=== PATIENT | female | born 1995 | race Caucasian/White ===

== ENCOUNTER → 2018-03-15 | Outpatient (CLI) | payer SELFPAY ==
[~2018-03-15] MED LIST: HYDR-690 PO; KETO-22 PO; NITR-65 PO; PHEN200T27 PO; birth control PO
--- NOTE | 2018-03-15 19:42 | Diagnostic Imaging Report ---
INDICATION: Positive test and lost IUD thread. TECHNIQUE: Multiple real-time grayscale images were obtained over the gravid uterus in various projections. FINDINGS: There is an intrauterine gestational sac containing a yolk sac. Gestational sac mean diameter is consistent with approximately 6 weeks 0 day gestation. No pole is seen at this time. No perigestational sac hemorrhage is detected. Gestational sac shape is within normal limits. The left ovary is not visualized. The right ovary contains a 17 mm hemorrhagic cyst. There is no free fluid. No IUD is visualized. IMPRESSION: Nonvisualized IUD. There is an intrauterine gestational sac containing a yolk sac of approximately 6 weeks 0 day gestation. No pole is seen at this time. Follow-up ultrasound and/or correlation with beta-hCG levels could be performed to confirm viable . Dictated by: Dictated on workstation # [id number]
== END ==
LOC: RAD 14:03
PROVIDERS: ATTEND Nurse Practitioner
DX: Z32.01 Encounter for pregnancy test, result positive (principal); T83.32XA Displacement of intrauterine contraceptive device, initial encounter; Z3A.01 Less than 8 weeks gestation of pregnancy
CPT/HCPCS: 36415; 76817; 84702

== ENCOUNTER → 2018-06-22 | Outpatient (CLI) | payer MEDICAID ==
--- NOTE | 2018-06-22 14:22 | Diagnostic Imaging Report ---
INDICATION: survey. TECHNIQUE: Multiple real-time grayscale images were obtained over the gravid uterus. COMPARISON: 03/15/2018. FINDINGS: There is a single live fetus in a breech presentation. heart rate was recorded at 126 beats per minute. The placenta is anterior. Amniotic fluid volume is normal. Cervical length is 3.8 cm. kidneys, bladder and stomach are unremarkable. The brain is unremarkable. There is a four-chamber heart. There is a three-vessel cord with normal cord insertion. spine is somewhat limited due to position. Maternal adnexa are unremarkable. Biometrical measurements are as follows: Biparietal 4.45 cm, age 19 weeks 4 days. Head circumference 17.40 cm, age 20 weeks 0 days. Abdominal circumference 15.13 cm, age 20 weeks 3 days. Femur length 3.23 cm, age 20 weeks 1 days. Sonographic estimate age: 20 weeks 1 days. Sonographic estimated date of delivery: 11/08/2018. Estimated Weight: 337 gm (+/- 49 gm). LMP percentile: 47%. heart rate: 126 beats per minute. number: 1 of 1. IMPRESSION: Single live IUP at 20 weeks gestational age demonstrating normal interval growth when compared with prior exam from 03/15/2018. survey is unremarkable although spine is somewhat limited due to position. Followup could be obtained. Dictated by: Dictated on workstation # [id number]
== END ==
LOC: RAD 10:10
PROVIDERS: ATTEND Obstetrics & Gynecology
DX: Z36.89 Encounter for other specified antenatal screening (principal); Z3A.20 20 weeks gestation of pregnancy
CPT/HCPCS: 76805

== ENCOUNTER → 2018-07-18 | Outpatient (CLI) | payer MEDICAID ==
--- NOTE | 2018-07-18 17:53 | Diagnostic Imaging Report ---
INDICATION: Evaluation of anatomy. TECHNIQUE: Multiple real-time grayscale images were obtained over the gravid uterus. COMPARISON: 06/22/2018. FINDINGS: Images were obtained to evaluate the spine which was incompletely assessed on the previous study. Fetus is in breech presentation. Spine is not well delineated on the current study. Placenta is anterior without evidence of previa. cardiac activity is present with a rate 150 beats per minute. No maternal adnexal region abnormality is identified. IMPRESSION: Limited assessment of spine reveals no definite abnormality although evaluation remains incomplete. Additional follow-up study could be performed later in the second trimester or early third trimester if clinically warranted. Dictated by: Dictated on workstation # [id number]
== END ==
LOC: RAD 13:06
PROVIDERS: ATTEND Obstetrics & Gynecology
DX: Z36.89 Encounter for other specified antenatal screening (principal); Z3A.21 21 weeks gestation of pregnancy
CPT/HCPCS: 76816

== ENCOUNTER → 2018-11-01 | Outpatient (CLI) | payer BC, MEDICAID ==
--- NOTE | 2018-11-01 11:56 | Diagnostic Imaging Report ---
INDICATION: Followup spine. TECHNIQUE: Multiple real-time grayscale images were obtained over the gravid uterus. COMPARISON: 06/22/2018 and 07/18/2018. FINDINGS: The prior exam of 07/18/2018 noted a single live fetus in breech presentation. spine was not well imaged on the prior exam. On this study, the fetus is again visualized and remains in breech presentation. heart motion was noted and a rate of 125 BPM was recorded. There were no abnormalities identified but the spine was again not optimally visualized due to lie. The growth parameters average approximately 38 weeks gestation +/-3.5 weeks. The amniotic fluid index is within normal limits. The placenta is anterior and there is no previa. The cervix was not measured during the course of this exam. IMPRESSION: 1. There is a single live fetus in breech presentation at approximately 39 weeks gestation +/-1.5 weeks. The EDC remains November 08, 2018. 2. There were no abnormalities identified, although the spine was still not optimally visualized. 3. The growth parameters seem to have progress as expected since the prior exam. Biometrical measurements are as follows: Biparietal 9.30 cm, age 37 weeks 6 days. Head circumference 33.87 cm, age 39 weeks 0 days. Abdominal circumference 34.52 cm, age 38 weeks 3 days. Femur length 7.06 cm, age 36 weeks 2 days. Sonographic estimate age: 38 weeks 0 days. Sonographic estimated date of delivery: 11/15/2018. Estimated Weight: 3339 gm (+/- 487 gm). LMP percentile: 41%. heart rate: 125 beats per minute. number: 1 of 1. Dictated by: Dictated on workstation # [id number]
== END ==
LOC: RAD 10:03
PROVIDERS: ATTEND Obstetrics & Gynecology
DX: O32.1XX0 Maternal care for breech presentation, not applicable or unspecified (principal); Z3A.39 39 weeks gestation of pregnancy
CPT/HCPCS: 76816

== ENCOUNTER 2018-11-07 07:00 | Inpatient (IN) | payer BC, MEDICAID ==
[2018-11-07] VITALS (20 sets, daily range): BP systolic 98–129; BP diastolic 51–78
[~2018-11-07] VITALS: Ht 162.6 cm; Wt 84.8 kg
--- NOTE | 2018-11-07 07:10 | NUR ---
BEATRICE GARCIA presented to unit via AMBULATORY, accompanied by SO, with c/o BREECH, SCHEDULED EXTERNAL CEPHALIC VERSION BY DR LAI . BEATRICE GARCIA weighed, gowned, voided, and to bed. EFHM and TOCO applied, VS taken. BEATRICE GARCIA oriented to bed controls, call light, TV, heat, and A/C controls.
--- OUTSIDE RECORDS SUMMARY | 2018-11-07 07:21 | XMS REPORT ---
Author Author DAVIN GOETZ [facility] Address [address] [place] [address] Care Team Providers Care Systems Security Consultant Name Role Phone DAVIN GOETZ Unavailable PROBLEMS Type Condition ICD9-CM Code [id number] Code Onset Dates Condition Status SNOMED Code Problem Blood in stool 578.1 Active 046010086 Problem Hematuria, unspecified 599.70 Active 29826859 Problem Abdominal pain, unspecified site 789.00 Active 62419528 Problem Toxic effect of venom 989.5 Active 65530244 Problem Pain in joint, lower leg 719.46 Active 625114197 Problem Enlargement of lymph nodes 785.6 Active 93340586 ALLERGIES No Information ENCOUNTERS Encounter Location Date Diagnosis [place] [id number] [address] 04 Mar, 2018 test positive Z32.01 [place] [address] [address] 16 Jan, 2018 Encounter for IUD removal Z30.432 and control counseling Z30.09 [facility] [address] [place] [id number] [place] [address] 14 Jan, 2015 [facility] [address] [place] [id number] [place] [address] 13 Jan, 2015 [facility] [address] [place] [id number] [place] [address] Jul, [facility] [address] [address] Jul, [facility] [address] [place] [id number] [place] [address] Nov, [facility] [address] [address] Nov, [facility] [address] [facility] [id number], [place] [address] Apr, [facility] [address] [facility] [id number] [address] Apr, [facility] [address] [id number], [place] [address] Apr, [facility] [address] [facility] [id number], [place] [address] Apr, [facility] [address] [facility] [id number], [place] [address] Apr, [facility] [address] [facility] [id number], [place] [address] Apr, [facility] [address], [place] [address] Apr, [facility] [address], [place] [address] Apr, [facility] [address], [place] [address] Apr, [facility] [address], [place] [address] February, [facility] [address] [id number], [place] [address] February, [facility] [address] [id number], [place] [address] February, [facility] [address] [id number] [address] Oct, [facility] [address] [id number], [place] [address] Nov, IMMUNIZATIONS No Known Immunizations SOCIAL HISTORY Never Assessed REASON FOR VISIT test (walk-in) PLAN OF CARE VITAL SIGNS MEDICATIONS Unknown Medications RESULTS Name Result Date Reference Range TEST, URINE (IN HOUSE) 2018-03-07 RESULTS POSITIVE Lot # [id number] Control + Exp date 03 Aug 2019 PROCEDURES Procedure Date Ordered Result Body Site URINE TEST March 07, 2018 INSTRUCTIONS MEDICATIONS ADMINISTERED No Known Medications MEDICAL (GENERAL) HISTORY Type Description Date Surgical History rt foot surgery
--- OUTSIDE RECORDS SUMMARY | 2018-11-07 07:21 | XMS REPORT | Continuity of Care Document ---
Author Author [facility] Organization [facility] Address Unknown Phone Unavailable Support Name Relationship Address Phone KATHLEEN FLEMING Next Of Kin [address] [place] [address] Insurance Providers Payer Name Policy Number Subscriber Name Relationship [facility] [id number] Hiral Motley Self / Same As Patient Advance Directives Directive Response Recorded Date Advance Directives N 04/14/13 1:26pm Organ Donor Y 04/14/13 1:26pm Problems No Known Problems or Medical conditions. Social History History Response Recorded Date/Time Alcohol Use Denies Use 02/19/13 8:55pm Recreational Drug Use N 02/19/13 8:55pm Sexually Transmitted Disease N 02/19/13 8 :55pm Allergies, Adverse Reactions, Alerts Allergen Type Severity Reaction Last Updated No Known Drug Allergies Allergy Unknown 11/24/07 Acetaminophen Allergy Mild 01/05/10 Medications Medication Dose Units Route Sig Qty Days [ control] 1 Tab PO DAILY Hydrocodone Bitartrate/Ibuprofen (Hydrocodone Bt-Ibuprofen Tab) 1 Each PO Q 4 - 6 HRS PRN 10 Response Recorded Date/Time Status not known Unknown Results No Known Relevant Diagnostic Tests, Laboratory Data and/or Discharge Summary. Procedures Procedure Code Date REMOVAL OF FOOT FOREIGN BODY 33378 Encounters Encounter Location Date/Time Departed Emergency Room [facility] 8:46pm Pre-registered Emergency Room [facility] 01/03/10 2:11pm
--- OUTSIDE RECORDS SUMMARY | 2018-11-07 07:21 | XMS REPORT ---
Author Author DAVIN GOETZ [facility] Address [address] [place] [address] Care Team Providers Care Band Attacher Name Role Phone DAVIN GOETZ Unavailable PROBLEMS Type Condition ICD9-CM Code PZI14-GT Code Onset Dates Condition Status SNOMED Code Problem Blood in stool 578.1 Active 709937350 Problem Hematuria, unspecified 599.70 Active 24844196 Problem Abdominal pain, unspecified site 789.00 Active 62104191 Problem Toxic effect of venom 989.5 Active 24965645 Problem Pain in joint, lower leg 719.46 Active 294649084 Problem Enlargement of lymph nodes 785.6 Active 12347957 ALLERGIES No Known Allergies ENCOUNTERS Encounter Location Date Diagnosis [place] [address] [address] 04 Mar, 2018 test positive Z32.01 [place] [address] [address] 16 Jan, 2018 Encounter for IUD removal Z30.432 and control counseling Z30.09 [facility] [address] [place] [id number] [place] [address] 14 Jan, 2015 [facility] [address] [place] [id number] [place] [address] 13 Jan, 2015 [facility] [address] [place] [id number] [place] [address] Jul, [facility] [address] [address] Jul, [facility] [address] [place] [id number] [place] [address] Nov, [facility] [address] [address] Nov, [facility] [address] [facility] [id number], [place] [address] Apr, [facility] [address] [facility] [id number] Apr, [facility] [address] [facility] [id number], [place] [address] Apr, [facility] [address] [facility] [id number], [place] [address] Apr, [facility] [address] [facility] [id number], [place] [address] Apr, [facility] [address] [facility] [id number], [place] [address] Apr, [facility] [address] [id number], [place] [address] Apr, [facility] [address] [facility] [id number], [place] [address] Apr, [facility] [address] [facility] [id number], [place] [address] Apr, [facility] [address] [facility] [id number], [place] [address] February, [facility] [address] [facility] [id number], [place] [address] February, [facility] [address] [facility] [id number], [place] [address] February, [facility] [address] [facility] [id number], [place] [address] Oct, [facility] [address] [facility] [id number], [place] [address] Nov, IMMUNIZATIONS No Known Immunizations SOCIAL HISTORY Never Assessed REASON FOR VISIT IUD check , patient states she has been having cramping states she has had the IUD for 2 1/2 year -- mzaldana, ma PLAN OF CARE Activity Details Follow Up 6 Months with [facility] with PAP Reason: VITAL SIGNS Height 66 in 2018-01-17 Weight 138.0 lbs 2018-01-17 Temperature 98.0 degrees Fahrenheit 2018-01-17 Heart Rate 78 bpm 2018-01-17 Respiratory Rate 18 2018-01-17 BMI 22.27 kg/m2 2018-01-17 Blood pressure systolic 110 mmHg 2018-01-17 Blood pressure diastolic 76 mmHg 2018-01-17 MEDICATIONS Unknown Medications RESULTS No Results PROCEDURES Procedure Date Ordered Result Body Site REMOVE INTRAUTERINE DEVICE January 17, 2018 INSTRUCTIONS MEDICATIONS ADMINISTERED No Known Medications MEDICAL (GENERAL) HISTORY Type Description Date Surgical History rt foot surgery
--- OUTSIDE RECORDS SUMMARY | 2018-11-07 07:22 | XMS REPORT | Continuity of Care Document ---
Author Author [facility] Address Unknown Phone Unavailable Allergies Active Description Code Type Severity Reaction Onset Reported/Identified Relationship to Patient Clinical Status Yes No Known Drug Allergies [id number] Drug Allergy Unknown N/A 11/24/2007 Yes acetaminophen [id number] Drug Allergy Mild N/A 01/05/2010 Yes Tylenol Drug Allergy 12/08/2010 Yes Tylenol Drug Allergy N/A N/A 12/08/2010 Medications There is no data. Problems Date Dx Coded Attending Type Code Diagnosis Diagnosed By 10/19/2008 462 PHARYNGITIS ACUTE 10/19/2008 462 PHARYNGITIS ACUTE 10/19/2008 462 PHARYNGITIS ACUTE 10/19/2008 462 PHARYNGITIS ACUTE 10/19/2008 DIGNA PALAFOX MD 462 PHARYNGITIS ACUTE 10/19/2008 CANDELARIA MCCLENDON MD 462 PHARYNGITIS ACUTE 11/14/2008 465.9 UPPER RESPIRATORY INFECTION ACUTE 11/14/2008 465.9 UPPER RESPIRATORY INFECTION ACUTE 11/14/2008 465.9 UPPER RESPIRATORY INFECTION ACUTE 11/14/2008 465.9 UPPER RESPIRATORY INFECTION ACUTE 11/14/2008 DIGNA PALAFOX MD 465.9 UPPER RESPIRATORY INFECTION ACUTE 11/14/2008 CANDELARIA MCCLENDON MD 465.9 UPPER RESPIRATORY INFECTION ACUTE 12/08/2010 703.8 OTHER SPECIFIED DISEASES OF NAIL 12/08/2010 883.0 OPEN WOUND OF FINGERS WITHOUT COMPLICATION 12/08/2010 703.8 OTHER SPECIFIED DISEASES OF NAIL 12/08/2010 883.0 OPEN WOUND OF FINGERS WITHOUT COMPLICATION 12/08/2010 703.8 OTHER SPECIFIED DISEASES OF NAIL 12/08/2010 883.0 OPEN WOUND OF FINGERS WITHOUT COMPLICATION 12/08/2010 703.8 OTHER SPECIFIED DISEASES OF NAIL 12/08/2010 883.0 OPEN WOUND OF FINGERS WITHOUT COMPLICATION 12/08/2010 DIGNA PALAFOX MD 703.8 OTHER SPECIFIED DISEASES OF NAIL 12/08/2010 DIGNA PALAFOX MD 883.0 OPEN WOUND OF FINGERS WITHOUT COMPLICATION 12/08/2010 CANDELARIA MCCLENDON MD 703.8 OTHER SPECIFIED DISEASES OF NAIL 12/08/2010 CANDELARIA MCCLENDON MD 883.0 OPEN WOUND OF FINGERS WITHOUT COMPLICATION 02/19/2013 RAMON LEE DO Ot 709.9 SKIN DISORDER NOS 02/21/2013 785.6 LYMPH NODES ENLARGEMENT 02/21/2013 989.5 TOXIC EFFECT OF VENOM 02/21/2013 785.6 LYMPH NODES ENLARGEMENT 02/21/2013 989.5 TOXIC EFFECT OF VENOM 02/21/2013 785.6 LYMPH NODES ENLARGEMENT 02/21/2013 989.5 TOXIC EFFECT OF VENOM 02/21/2013 DIGNA PALAFOX MD 785.6 LYMPH NODES ENLARGEMENT 02/21/2013 JAVY SHEIKH, DIGNA 989.5 TOXIC EFFECT OF VENOM 02/21/2013 CANDELARIA MCCLENDON MD 785.6 LYMPH NODES ENLARGEMENT 02/21/2013 CANDELARIA MCCLENDON MD 989.5 TOXIC EFFECT OF VENOM 04/11/2013 JAVY SHEIKH, DIGNA 578.1 BLOOD IN STOOL 04/11/2013 DANELLE SHEIKH, CANDELARIA 578.1 BLOOD IN STOOL 04/13/2013 JAVY SHEIKH, DIGNA 599.70 HEMATURIA UNSPECIFIED 04/13/2013 JAVY SHEIKH, DIGNA 789.00 ABDOMINAL PAIN UNSPECIFIED SITE 04/13/2013 DANELLE SHEIKH CANDELARIA 599.70 HEMATURIA UNSPECIFIED 04/13/2013 CANDELARIA MCCLENDON MD 789.00 ABDOMINAL PAIN UNSPECIFIED SITE 07/14/2013 CANDELARIA MCCLENDON MD L Ot 578.1 BLOOD IN STOOL 08/13/2013 RAMON LEE DO Ot 599.0 URIN TRACT INFECTION NOS 08/13/2013 RAMON LEE DO Ot 620.2 OVARIAN CYST NEC/NOS 08/13/2013 RAMON LEE DO Ot 789.00 ABDOMINAL PAIN, UNSPECIFIED SITE 07/17/2014 CANDELARIA MCCLENDON MD 719.46 PAIN IN JOINT INVOLVING LOWER LEG 08/20/2014 CANDELARIA MCCLENDON MD Ot 719.46 08/20/2014 CANDELARIA MCCLENDON MD Ot V57.1 09/07/2014 CANDELARIA MCCLENDON MD Ot 719.46 JOINT PAIN-L/LEG 09/07/2014 DANELLE SHEIKH, CANDELARIA [place] Ot V57.1 PHYSICAL THERAPY NEC 03/10/2018 DANELLE SHEIKH, CANDELARIA [place] Ot 599.70 HEMATURIA, UNSPECIFIED 03/10/2018 JAVY SHEIKH, DIGNA [place] Ot 578.1 BLOOD IN STOOL 03/10/2018 JAVY SHEIKH, DIGNA [place] Ot 599.70 HEMATURIA, UNSPECIFIED 03/10/2018 JAVY SHEIKH, DIGNA [place] Ot 789.00 ABDOMINAL PAIN, UNSPECIFIED SITE 03/10/2018 FENECH DO, PRISCA S Ot 625.9 FEM GENITAL SYMPTOMS NOS 03/10/2018 Ot 578.1 BLOOD IN STOOL 03/15/2018 DANELLE SHEIKH, CANDELARIA [place] Ot 599.70 HEMATURIA, UNSPECIFIED 03/15/2018 JAVY SHEIKH, DIGNA [place] Ot 578.1 BLOOD IN STOOL 03/15/2018 JAVY SHEIKH, DIGNA [place] Ot 599.70 HEMATURIA, UNSPECIFIED 03/15/2018 JAVY SHEIKH, DIGNA [place] Ot 789.00 ABDOMINAL PAIN, UNSPECIFIED SITE 03/15/2018 FENECH DO, PRISCA S Ot 625.9 FEM GENITAL SYMPTOMS NOS 03/15/2018 Ot 578.1 BLOOD IN STOOL 03/16/2018 OUMOU ZEPEDA TURNING LATHE TENDER Ot T83.32XA DISPLACEMENT OF INTRAUTERINE CONTRACEPTI 03/16/2018 OUMOU ZEPEDA TURNING LATHE TENDER Ot Z32.01 ENCOUNTER FOR TEST, RESULT POS 03/16/2018 KATELYN OUMOU W TURNING LATHE TENDER Ot Z3A.01 LESS THAN 8 WEEKS GESTATION OF 05/27/2018 OUMOU ZEPEDA TURNING LATHE TENDER Ot T83.32XA DISPLACEMENT OF INTRAUTERINE CONTRACEPTI 05/27/2018 QUICKOUMOU TURNING LATHE TENDER Ot Z32.01 ENCOUNTER FOR TEST, RESULT POS 05/27/2018 QUICKOUMOU TURNING LATHE TENDER Ot Z3A.01 LESS THAN 8 WEEKS GESTATION OF 06/08/2018 OUMOU ZEPEDA TURNING LATHE TENDER Ot T83.32XA DISPLACEMENT OF INTRAUTERINE CONTRACEPTI 06/08/2018 OUMOU ZEPEDA TURNING LATHE TENDER Ot Z32.01 ENCOUNTER FOR TEST, RESULT POS 06/08/2018 OUMOU ZEPEDA TURNING LATHE TENDER Ot Z3A.01 LESS THAN 8 WEEKS GESTATION OF 06/23/2018 LAI DO, JES C Ot Z36.89 ENCOUNTER FOR OTHER SPECIFIED 06/23/2018 LAI DO, JES C Ot Z3A.20 20 WEEKS GESTATION OF 07/07/2018 LAI DO, JES C Ot Z36.89 ENCOUNTER FOR OTHER SPECIFIED 07/07/2018 LAI DO, JES C Ot Z3A.20 20 WEEKS GESTATION OF 07/18/2018 DANELLE SHEIKH, CANDELARIA [place] Ot 599.70 HEMATURIA, UNSPECIFIED 07/18/2018 JAVY SHEIKH, DIGNA L Ot 578.1 BLOOD IN STOOL 07/18/2018 JAVY SHEIKH, DIGNA L Ot 599.70 HEMATURIA, UNSPECIFIED 07/18/2018 JAVY SEHIKH, DIGNA L Ot 789.00 ABDOMINAL PAIN, UNSPECIFIED SITE 07/18/2018 FENECH DO, PRISCA S Ot 625.9 FEM GENITAL SYMPTOMS NOS 07/18/2018 Ot 578.1 BLOOD IN STOOL 07/18/2018 OUMOU ZEPEDA TURNING LATHE TENDER Ot T83.32XA DISPLACEMENT OF INTRAUTERINE CONTRACEPTI 07/18/2018 OUMOU ZEPEDA TURNING LATHE TENDER Ot Z32.01 ENCOUNTER FOR TEST, RESULT POS 07/18/2018 OUMOU ZEPEDA TURNING LATHE TENDER Ot Z3A.01 LESS THAN 8 WEEKS GESTATION OF 07/18/2018 LAI DO, JES C Ot Z36.89 ENCOUNTER FOR OTHER SPECIFIED 07/18/2018 LAI DO, JES C Ot Z3A.20 20 WEEKS GESTATION OF 07/19/2018 LAI DO, JES C Ot Z36.89 ENCOUNTER FOR OTHER SPECIFIED 07/19/2018 LAI DO, JES C Ot Z3A.21 21 WEEKS GESTATION OF 08/04/2018 LAI DO, JES C Ot Z36.89 ENCOUNTER FOR OTHER SPECIFIED 08/04/2018 LAI DO, JES C Ot Z3A.21 21 WEEKS GESTATION OF 09/01/2018 LAI DO, JES C Ot Z36.89 ENCOUNTER FOR OTHER SPECIFIED 09/01/2018 LAI DO, JES C Ot Z3A.21 21 WEEKS GESTATION OF 09/01/2018 CANDELARIA MCCLENDON MD L Ot 599.70 HEMATURIA, UNSPECIFIED 09/01/2018 JAVY SHEIKH, DIGNA L Ot 578.1 BLOOD IN STOOL 09/01/2018 JAVY SHEIKH, DIGNA L Ot 599.70 HEMATURIA, UNSPECIFIED 09/01/2018 JAVY SHEIKH, DIGNA [place] Ot 789.00 ABDOMINAL PAIN, UNSPECIFIED SITE 09/01/2018 FENECH DO, PRISCA S Ot 625.9 FEM GENITAL SYMPTOMS NOS 09/01/2018 Ot 578.1 BLOOD IN STOOL 09/01/2018 OUMOU ZEPEDA TURNING LATHE TENDER Ot T83.32XA DISPLACEMENT OF INTRAUTERINE CONTRACEPTI 09/01/2018 KATELYN OUMOU W TURNING LATHE TENDER Ot Z32.01 ENCOUNTER FOR TEST, RESULT POS 09/01/2018 KATELYNELIZABETHRita Parmar TURNING LATHE TENDER Ot Z3A.01 LESS THAN 8 WEEKS GESTATION OF 09/01/2018 MING DO JES C Ot Z36.89 ENCOUNTER FOR OTHER SPECIFIED 09/01/2018 MING DO JES C Ot Z3A.20 20 WEEKS GESTATION OF 09/01/2018 LIA DO JES C Ot Z36.89 ENCOUNTER FOR OTHER SPECIFIED 09/01/2018 MING DO JES C Ot Z3A.21 21 WEEKS GESTATION OF 11/01/2018 FENECH DO, PRISCA S Ot 625.9 FEM GENITAL SYMPTOMS NOS 11/01/2018 Ot 578.1 BLOOD IN STOOL 11/01/2018 KATELYN OUMOU W TURNING LATHE TENDER Ot T83.32XA DISPLACEMENT OF INTRAUTERINE CONTRACEPTI 11/01/2018 QUICK OUMOU W TURNING LATHE TENDER Ot Z32.01 ENCOUNTER FOR TEST, RESULT POS 11/01/2018 KATELYN OUMOU W TURNING LATHE TENDER Ot Z3A.01 LESS THAN 8 WEEKS GESTATION OF 11/01/2018 MING DO JES C Ot Z36.89 ENCOUNTER FOR OTHER SPECIFIED 11/01/2018 MING GUERRA JES C Ot Z3A.20 20 WEEKS GESTATION OF 11/01/2018 MING GUERRA JES C Ot Z36.89 ENCOUNTER FOR OTHER SPECIFIED 11/01/2018 MING DO JES C Ot Z3A.21 21 WEEKS GESTATION OF 11/01/2018 JES LAI DO Ot O32.1XX0 MATERNAL CARE FOR BREECH PRESENTATION, U 11/01/2018 JES LAI DO C Ot Z3A.39 39 WEEKS GESTATION OF Procedures Code Description Performed By Performed On FAMILY ISMAEL GUSMAN 07/17/2014 PHYSICAL PHYSICAL THERAPY, VIA ANA 07/17/2014 Results Test Result Range Serum or plasma choriogonadotropin measurement (units/volume) - 03/15/18 14:41 Serum or plasma choriogonadotropin measurement (units/volume) 65224 m[iU]/mL <5 Encounters ACCT No. Visit Date/Time Discharge Status Pt. Type Provider Facility Loc./Unit Complaint [id number] 07/17/2014 15:49:00 07/17/2014 23:59:59 CLS Outpatient CANDELARIA MCCLENDON MD [id number] 04/13/2013 14:10:00 04/13/2013 23:59:59 CLS Outpatient DIGNA PALAFOX MD [id number] 01/05/2011 11:36:00 01/05/2011 23:59:59 CLS Outpatient [id number] 02/24/2013 14:55:00 Document Registration [id number] 02/22/2013 15:45:00 Document Registration [id number] 02/21/2013 09:32:00 Document Registration [id number] 10/30/2012 15:56:47 RECURRING [id number] 11/01/2018 10:03:00 11/01/2018 23:59:59 CLS Outpatient JES LAI DO [facility] RAD 38 WEEKS GESTATION OF [id number] 07/18/2018 13:06:00 07/18/2018 23:59:59 CLS Outpatient JES LAI DO [facility] RAD EVAL ANATOMY [id number] 06/22/2018 10:10:00 06/22/2018 23:59:59 CLS Outpatient JES LAI DO [facility] RAD Z3A.16 [id number] 03/15/2018 14:03:00 03/15/2018 23:59:59 CLS Outpatient OUMOU ZEPEDA [facility] RAD IUD THREAD LOST [id number] 08/20/2014 15:10:00 09/07/2014 10:09:00 DIS Outpatient CANDELARIA MCCLENDON MD [facility] REHAB B PATELLOFEMORAL SYNDROME [id number] 06/18/2014 08:15:00 06/18/2014 23:59:59 CLS Outpatient [id number] 08/13/2013 09:40:00 08/13/2013 12:26:00 DIS Emergency RAMON LEE DO [facility] ER ABD PAIN [id number] 04/15/2013 17:30:00 07/14/2013 00:01:00 DIS Outpatient CANDELARIA MCCLENDON MD [facility] LAB HEMATOCHEZIA [id number] 07/12/2013 14:46:00 07/12/2013 23:59:59 CLS Outpatient GWEN GUERRA PRISCA S [facility] RAD PELVIC PAIN [id number] 04/14/2013 13:00:00 04/14/2013 23:59:59 CLS Outpatient CANDELARIA MCCLENDON MD [facility] LAB HEMATURIA [id number] 04/13/2013 15:48:00 04/13/2013 23:59:59 CLS Outpatient DIGNA PALAFOX MD [facility] RAD BLOOD IN STOOL [id number] 02/19/2013 20:46:00 02/19/2013 20:59:00 DIS Emergency ROSA DORAMON [facility] ER POSS ABSCESS ON L LEG [id number] 02/13/2013 14:32:00 02/13/2013 23:59:59 CLS Outpatient [id number] 11/07/2018 07:00:00 PEN Preadmit JES LAI DO [id number] 07/15/2013 00:00:00 Document Registration [id number] 03/07/2018 10:00:00 03/07/2018 23:59:59 CLS Outpatient DAVIN GOETZ [id number] 08/20/2014 15:10:44 ACT Document Registration
--- OUTSIDE RECORDS SUMMARY | 2018-11-07 07:22 | XMS REPORT | Continuity of Care Document ---
Author Author [facility] Organization [facility] Address Unknown Phone Unavailable Support Name Relationship Address Phone KATHLEEN FLEMING Next Of Kin [address] [place] [address] Insurance Providers Payer Name Policy Number Subscriber Name Relationship [facility] [id number] Hiral Motley Self / Same As Patient [...] Recorded Date/Time Status not known Unknown Results Test Date Result Interp. Ref. Range BUN/Creatinine Ratio April 13, 2013 4:08pm 16 - Band Neutrophils November 23, 2007 11:30am 0 % - Basophils # (Auto) November 23, 2007 11:30am 0.0 10^3/uL N 0.0-0.1 Basophils % (Manual) November 23, 2007 11:30am 0 % - Basophils (%) (Auto) November 23, 2007 11:30am 0 % N 0-10 Blood Urea Nitrogen April 13, 2013 4:08pm 11 MG/DL N 7-18 C-Reactive Protein April 13, 2013 4:08pm < 0.2 MG/DL L 0.2-0.9 Calcium Level April 13, 2013 4:08pm 8.6 MG/DL N 8.5-10.1 Carbon Dioxide Level April 13, 2013 4:08pm 27 MMOL/L N 21-32 Chloride Level April 13, 2013 4:08pm 103 MMOL/L N 101-110 Complement C3 April 13, 2013 4:08pm 97 MG /DL - Complement C4 April 13, 2013 4:08pm 12 L MG/DL - Creatinine April 13, 2013 4:08pm 0.7 MG/ DL N 0.6-1.3 Eosinophils # (Auto) November 23, 2007 11:30am 0.8 10^3/uL H 0.0-0.3 Eosinophils % (Manual) November 23, 2007 11:30am 13 % - Eosinophils (%) (Auto) November 23, 2007 11:30am 12 % H 0-10 Erythrocyte Sedimentation Rate April 13, 2013 4:08pm 7 MM/HR N 0-20 Glucose Level April 13, 2013 4:08pm 88 MG /DL N 74-106 Hematocrit April 13, 2013 4:08pm 37 % N 35-52 Hemoglobin April 13, 2013 4:08pm 13.0 G/ DL N 11.5-16.0 Lymphocytes # (Auto) November 23, 2007 11:30am 1.8 X 10^3 N 1.5-6.5 Lymphocytes % (Manual) November 23, 2007 11:30am 38 % - Lymphocytes (%) (Auto) November 23, 2007 11:30am 29 % N 12-44 Mean Corpuscular Hemoglobin April 13, 2013 4:08pm 29 PG N 25-34 Mean Corpuscular Hemoglobin Concent April 13, 2013 4:08pm 35 G/DL N 32-36 Mean Corpuscular Volume April 13, 2013 4:08pm 82 FL N 77-95 Mean Platelet Volume April 13, 2013 4:08pm 11.4 FL H 7.4-10.4 Monocytes # (Auto) November 23, 2007 11:30am 0.4 X 10^3 N 0.0-1.0 Monocytes % (Manual) November 23, 2007 11:30am 6 % - Monocytes (%) (Auto) November 23, 2007 11:30am 7 % N 0-12 Neutrophils # (Auto) November 23, 2007 11:30am 3.2 X 10^3 N 1.8-8.0 Neutrophils % (Manual) November 23, 2007 11:30am 35 % - Neutrophils (%) (Auto) November 23, 2007 11:30am 52 % N 42-75 Platelet Count April 13, 2013 4:08pm 178 10^3/uL N 130-400 Potassium Level April 13, 2013 4:08pm 4.0 MMOL/L N 3.6-5.0 Red Blood Count April 13, 2013 4:08pm 4.52 10^6/uL N 3.79-5.25 Red Cell Distribution Width April 13, 2013 4:08pm 12.7 % N 10.0-14.5 Serum Test, Qualitative November 23, 2007 11:30am Negative - Sodium Level April 13, 2013 4:08pm 136 MMOL/L N 135-145 Urine Bacteria April 14, 2013 1:35pm NEGATIVE /HPF - Urine Bilirubin April 14, 2013 1:35pm NEGATIVE - Urine Casts April 14, 2013 1:35pm NONE / LPF - Urine Clarity April 14, 2013 1:35pm CLEAR - Urine Color April 14, 2013 1:35pm YELLOW - Urine Crystals April 14, 2013 1:35pm NONE /LPF - Urine Culture Indicated April 14, 2013 1:35pm NO - Urine Glucose (UA) April 14, 2013 1:35pm NEGATIVE - Urine Ketones April 14, 2013 1:35pm NEGATIVE - Urine Leukocyte Esterase April 14, 2013 1:35pm NEGATIVE - Urine Mucus April 14, 2013 1:35pm MODERATE /LPF H - Urine Nitrite April 14, 2013 1:35pm NEGATIVE - Urine Test November 24, 2007 7:25am Negative - Urine Protein April 14, 2013 1:35pm NEGATIVE - Urine RBC April 14, 2013 1:35pm RARE / HPF - Urine Specific [place] April 14, 2013 1:35pm 1.015 L - Urine Squamous Epithelial Cells April 14, 2013 1:35pm 2-5 /HPF - Urine Urobilinogen April 14, 2013 1:35pm 1 MG/DL - Urine WBC April 14, 2013 1:35pm RARE / HPF - Urine pH April 14, 2013 1:35pm 8 - White Blood Count April 13, 2013 4:08pm 5.1 10^3/uL N 4.3-11.0 Blood Morphology Comment November 23, 2007 11:30am Normal - Stool Occult Blood Immunoassay April 15, 2013 12:00am NEGATIVE - Urine RBC (Auto) April 14, 2013 1:35pm NEGATIVE - Procedures Procedure Code Date REMOVAL OF FOOT FOREIGN BODY 75073 Fecal Leukocyte Stain 04/15/13 Gram Stain 11/24/07 MRSA Screen 11/23/07 Urine Culture 04/14/13 Encounters Encounter Location Date/Time Departed Emergency Room [facility] 8:46pm Pre-registered Emergency Room [facility] 01/03/10 2:11pm
--- NOTE | 2018-11-07 07:33 | NUR ---
DR LAI CALLED TO DISCUSS PLAN OF CARE WITH THIS RN. ORDERS RECEIVED. PLAN IS TO PLACE IV, GET LABS BACK, PLACE EPIDURAL. DR LAI WILL BE UP TO LD AFTER A WHILE FOR VERSION. US AT BEDSIDE, MINERAL IRASEMA, TERB.
[2018-11-07] MEDS ORDERED: MINERAL OIL CONCENTRATE 99.9% 15 ML UDC TOP PRN (08:00)
[2018-11-07 08:01] LABS: BASOPHILS % (AUTO) 0 % (0-10); EOSINOPHILS # (AUTO) 0.1 10^3/uL (0.0-0.3); EOSINOPHILS % (AUTO) 1 % (0-10); HEMATOCRIT 34 % (35-52); HEMOGLOBIN 11.2 G/DL (11.5-16.0); LYMPHOCYTES # (AUTO) 1.3 X 10^3 (1.0-4.0); LYMPHOCYTES % (AUTO) 15 % (12-44); MEAN CORPUSCULAR HEMOGLOBIN 29 PG (25-34); MEAN CORPUSCULAR HGB CONC 33 G/DL (32-36); MEAN CORPUSCULAR VOLUME 88 FL (80-99); MONOCYTES # (AUTO) 0.6 X 10^3 (0.0-1.0); MONOCYTES % (AUTO) 8 % (0-12); NEUTROPHILS # (AUTO) 6.2 X 10^3 (1.8-7.8); NEUTROPHILS % (AUTO) 76 % (42-75); PLATELET COUNT 118 10^3/uL (130-400); RED CELL DISTRIBUTION WIDTH 13.1 % (10.0-14.5); WHITE BLOOD COUNT 8.2 10^3/uL (4.3-11.0)
[2018-11-07] MEDS ORDERED: SUFENTA 0.6MCG/ML BUPIVA 0.125 100 ML ONE (08:08)
--- NOTE | 2018-11-07 08:08 | NUR ---
ANESTHESIA CALLED AT THIS TIME FOR EPIDURAL PLACEMENT FOR EXTERNAL VERSION. ANESTHESIA AWARE OF SCHEDULED VERSION KATIE PINZON.
[2018-11-07] MEDS ORDERED: TERBUTALINE INJ 1 MG/ML (BRETHINE) AMP SC NR (08:15)
[2018-11-07] MEDS: D5 LR IV SOLUTION 1,000 ML IV SCH ×2 (08:37→16:32)
[2018-11-07] MEDS ORDERED: fentaNYL INJECTION 100 MCG/2 ML AMP ONE ×2 (08:59→11:47)
[2018-11-07] MEDS ORDERED: FLU QUADRIvalent (5+ YOA) 2018-2019 (AFLURIA) 0.5 ML IM ONE (09:00)
--- NOTE | 2018-11-07 09:51 | Operative Report ---
Operative Report Date of Procedure/Surgery Nov 07, 2018 Surgeon (s) JES LAI DO Director Embalmer (s): Tressa Betts, MS III Post-Operative Diagnosis Breech presentation at term (40 + weeks) Procedure Performed External cephalic version Description of Procedure Anesthesia Type: EPI Estimated blood loss (mL): none Specimen(s) collected/removed none Description of the Procedure Patient was admitted and consented for external cephalic version. well being was reassuring. She was not pako. Epidural was placed. We attempted version on three occasions. Baby was transverse to breech wit back up. The head to the maternal right. She was placed in the right transverse position and the abdomen was prepped with mineral oil. position was reconfirmed and the hearttones were checked. I then attempted a frontward roll and then a backward roll. The position was not changed and well being was reassessed. She was not pako. We waited another 10 minutes and then attempted the version on the left side. This was attempted twice. The baby was verted but then reverted back to the previous position. The hearttones were down to the 110s but did recover. As the version was not successful and the baby was stressed with version, though the heart rate recovered well, the decision was made to proceed with primary section. The risks and benefits of the section were explained to the patient and consent was signed. She will be pretreated with Ancef and SCDs will be used. Findings of the Procedure see above Allergies and Home Medications Allergies Coded Allergies: acetaminophen (Unverified Allergy, Mild, 01/05/10) No Known Drug Allergies (Verified , 11/24/07) Home Medications Ketorolac Tromethamine 10 Mg Tablet, 10 MG PO Q 6 HOURS PRN for P Prescribed by: RAMON LEE on 08/13/13 1146 Nitrofurantoin/Nitrofuran Mac 100 Mg Capsule, 1 EACH PO BID FOR INFECTION Prescribed by: RAMON LEE on 08/13/13 1146 Phenazopyridine Hcl 200 Mg Tablet, 1 EACH PO TID PRN FOR BLADDER DISCOMFORT Prescribed by: RAMON LEE on 08/13/13 1146 Patient Home Medication List Home Medication List Reviewed: JES Angel DO Nov 07, 2018 09:51
--- NOTE | 2018-11-07 10:05 | NUR ---
dr miller at bedside for external version. 1007: pt to right side, dr miller begins 1st attempt at version 1013:pt turned to left, fht 145 bpm 1015: pt remains on left side. dr miller attempts versions again 1018: attempt to monitor fht, unable to monitor, pt turned to supine position 1021: pt turned to right side, fht at 120 dr miller will retry version again in 10 + minutes
--- NOTE | 2018-11-07 10:50 | NUR ---
1050: dr miller at bedside to reattempt external version. pt turned to left side 1056: fht 120-135. dr miller made decision for at this time. discusses plan of care with pt at this time.
[2018-11-07] MEDS ORDERED: METOCLOPRAMIDE INJ 10 MG/2 ML (REGLAN) ONE (11:02)
[2018-11-07] MEDS ORDERED: CITRIC ACID/SOB CIT (BICITRA) 30 ML UDC ONE (11:02)
[2018-11-07] MEDS ORDERED: FAMOTIDINE 20MG/2ML IV (PEPCID) ONE (11:03)
[2018-11-07] MEDS ORDERED: LACTATED RINGERS 1,000 ML IV PRN (11:09)
[2018-11-07] MEDS ORDERED: FAMOTIDINE 20MG/2ML IV (PEPCID) IV ONE (11:15)
[2018-11-07] MEDS ORDERED: METOCLOPRAMIDE INJ 10 MG/2 ML (REGLAN) IV ONE (11:15)
[2018-11-07] MEDS ORDERED: CITRIC ACID/SOB CIT (BICITRA) 30 ML UDC PO ONE (11:15)
[2018-11-07] MEDS ORDERED: LIDOCAINE PF 2% 5 ML (XYLOCAINE) VIAL ONE ×2 (11:18→11:47)
[2018-11-07] MEDS ORDERED: OXYTOCIN/NORMAL SALINE 500 ML IV ONE ×2 (11:18→12:12)
[2018-11-07] MEDS ORDERED: ceFAZolin INJECTION 1,000 MG ONE ×2 (11:18→11:25)
[2018-11-07] MEDS ORDERED: NS (IVPB) 50 ML ONE ×2 (11:22→11:25)
[2018-11-07] MEDS ORDERED: EPINEPHrine INJECTION 1 MG/ML AMP ONE (11:22)
[2018-11-07] MEDS ORDERED: ceFAZolin INJECTION 1,000 MG in NS (IVPB) 50 ML IV ONE ×4 (11:30)
[2018-11-07] MEDS ORDERED: PHENYLEPHRINE 100 MCG/ML 10 ML (ANESTHESIA) SYR ONE (11:43)
[2018-11-07] MEDS ORDERED: ROPIVACAINE 5MG/ML 30ML VIAL ONE (12:12)
[2018-11-07] MEDS ORDERED: OXYTOCIN/NORMAL SALINE 500 ML IV SCH (12:30)
[2018-11-07] MEDS ORDERED: MEASLES,MUMPS,RUBELLA 1 EA INJ SC SCH (12:30)
[2018-11-07] MEDS ORDERED: HYDROmorphone 2 MG/ML VIAL (DILAUDID) IV PRN (12:30)
[2018-11-07] MEDS ORDERED: TETANUS,DIPTH,PERTUSS P/F (BOOSTRIX) 0.5 ML VIAL IM SCH (12:30)
--- NOTE | 2018-11-07 12:43 | Cesarean Section Operative ---
Procedure Procedure Note Pre-operative Diagnosis: Hiral Motley is a 21 /Para 1/ 0, Gestational Age 39 6/7 weeks, breech, failed external cephalic version Post-operative Diagnosis: same Procedure: Primary low transverse section Physician: JES LAI Brine Room Laborer: Tressa Betts, MS III Estimated blood loss: 500 mL Disposition: stable anesthesia: epidural and post operative TAP block Findings: Viable male , Apgars 8/9, weight 7#13 oz, intact placenta, 3vc, normal appearing uterus, tubes, and ovaries. Complete breech Indications:Hiral Motley is a 21 /Para 1 /0 ,Gestational Age 39 6/ 7 weeks, complete breech, failed external cephalic version Procedure Details: The patient was seen in pre-op and the procedure was discussed with the patient in full, including the risks, benefits, and alternatives. All questions were answered. The patient was taken to the operating room and a time out was performed, verifying patient and procedure. Epidural had been previously placed for the version. After anesthesia was confirmed to be adequate by our anesthesia colleagues, the patient was placed in the dorsal supine with leftward tilt for uterine displacement.~ Her abdomen was then prepped and draped in the typical sterile fashion. A Pfannenstiel skin incision was made using a scalpel and carried down through the underlying fascia. The fascia was incised in the midline and tented up using Ena clamps. On both the inferior and superior fascia side the rectus muscle was dissected off bluntly and sharply using Green scissors. The peritoneum was identified and entered bluntly in the midline. This was then stretched laterally using manual strength. After entering the abdominal cavity and confirming lack of intraperitoneal adhesions, a large Rickie retractor was placed and the lower uterine segment was visualized. ~ A scalpel was utilized to make a low transverse uterine incision. Amniotomy was performed with an Allis clamp with return of clear fluid. The 's feet were noted to be crossed and presenting. The head had moved to the upper left. the feet were grasped and brought to the level of the incision. The infant was delivered to the shoulders and then rotated to allow delivery of each arm, flexing across the chest. I then delivered the head with the [id number]-[id number] maneuver. Mouth and nares were suctioned with bulb suction. After the umbilical cord was clamped and cut, the was handed off to the pediatric staff. A sample of cord blood was then obtained. The placenta was delivered intact via uterine massage. The uterus was cleared of all clots and debris. The uterine incision was closed using 0 Vicryl in a running locked fashion. A second imbricated layer was placed using 0 Vicryl in a running fashion as well. The bilateral tubes and ovaries appeared normal. The abdominal gutters were cleared of all clots and debris. A final check of the uterine incision showed it to be hemostatic. The peritoneum was closed using 3- 0 Vicryl in a running fashion. The fascia was closed with 0 Vicryl in a running fashion. The subcutaneous space was hemostatic, and irrigated. The skin was then closed using 4-0 Monocryl in a running subcuticular fashion. The skin edges were reapproximated together and were hemostatic. A pressure dressing was applied. All sponge, lap and needle counts were correct at the end of the procedure per nursing. A TAP block was placed by anesthesia following the procedure. The patient was now taken to recovery room in stable condition and the baby was in the nursery. Vitals - Labs Vital Signs - I&O Vital Signs Date Time Temp Pulse Resp B/P (MAP) Pulse Ox O2 Delivery O2 Flow Rate FiO2 11/07/18 09:30 87 16 99/57 (71) 99 Room Air 11/07/18 08:30 83 129/78 (95) Room Air 11/07/18 07:30 98.5 78 16 111/71 (84) Room Air Labs Laboratory Tests 11/07/18 07:45: White Blood Count 8.2, Red Blood Count 3.85L, Hemoglobin 11.2L, Hematocrit 34L, Mean Corpuscular Volume 88, Mean Corpuscular Hemoglobin 29, Mean Corpuscular Hemoglobin Concent 33, Red Cell Distribution Width 13.1, Platelet Count 118L, Mean Platelet Volume 11.0H, Neutrophils (%) (Auto) 76H, Lymphocytes (%) (Auto) 15, Monocytes (%) (Auto) 8, Eosinophils (%) (Auto) 1, Basophils (%) (Auto) 0, Neutrophils # (Auto) 6.2, Lymphocytes # (Auto) 1.3, Monocytes # (Auto) 0.6, Eosinophils # (Auto) 0.1, Basophils # (Auto) 0.0 JES LAI DO Nov 07, 2018 12:43
[2018-11-07] MEDS ORDERED: LACTATED RINGERS 1,000 ML IV ONE ×2 (13:20→13:43)
[2018-11-07] MEDS ORDERED: ONDANSETRON 4 MG/2 ML (SDV) Z0FRAN IVP PRN (13:30)
[2018-11-07] MEDS ORDERED: NALOXONE 0.4 MG/ML 1 ML (NARCAN) VIAL IV PRN ×3 (13:30→13:45)
[2018-11-07] MEDS ORDERED: CATHETER FLUSH 10 ML SYR IV PRN (13:30)
[2018-11-07] MEDS ORDERED: HYDROmorphone 2 MG/ML VIAL (DILAUDID) IV ONE (13:30)
[2018-11-07] MEDS ORDERED: EPIDURAL (SUFENTA 0.6MCG/ML BUPIVA 0.125%) 100 ML BAG EPI SCH (13:30)
[2018-11-07] MEDS ORDERED: METOCLOPRAMIDE INJ 10 MG/2 ML (REGLAN) IV PRN (13:45)
[2018-11-07] MEDS ORDERED: ONDANSETRON 4 MG/2 ML (SDV) Z0FRAN IV PRN (13:45)
[2018-11-07] MEDS ORDERED: diphenhydrAMINE 50 MG/ML INJ (BENADRYL) IV PRN (13:45)
[2018-11-07] MEDS ORDERED: EPIDURAL (SUFENTA 0.6MCG/ML BUPIVA 0.125%) 100 ML BAG EPI PRN (13:45)
[2018-11-07] MEDS ORDERED: CATHETER FLUSH 10 ML SYR IV SCH (14:00)
[2018-11-07] MEDS: KETOROLAC 30 MG/ML VIAL IVP SCH ×2 (14:00→20:07)
--- NOTE | 2018-11-07 15:08 | NUR ---
PT REPORT GIVEN TO ELADIO BURNETTE AT THIS TIME
--- NOTE | 2018-11-07 16:45 | NUR ---
assisted up to BR. voided 250cc urine without difficulty. yesy-care instructions given, pt returned demonstration.
--- NOTE | 2018-11-07 19:21 | NUR ---
report given to VASILE Estevez
[2018-11-07] MEDS: DOCUSATE SODIUM 100 MG (COLACE) CAP PO SCH (20:07)
[2018-11-08 01:00] VITALS: BP 137/86
[2018-11-08] MEDS: KETOROLAC 30 MG/ML VIAL IVP SCH (01:55)
[2018-11-08] MEDS ORDERED: MILK OF MAGNESIA 400 MG/5 ML 30 ML UDC PO PRN (05:00)
[2018-11-08 06:00] VITALS: BP 122/70
[2018-11-08 07:03] LABS: BASOPHILS % (AUTO) 0 % (0-10); EOSINOPHILS # (AUTO) 0.1 10^3/uL (0.0-0.3); EOSINOPHILS % (AUTO) 1 % (0-10); HEMATOCRIT 30 % (35-52); HEMOGLOBIN 9.9 G/DL (11.5-16.0); LYMPHOCYTES % (AUTO) 11 % (12-44); MEAN CORPUSCULAR HEMOGLOBIN 29 PG (25-34); MEAN CORPUSCULAR HGB CONC 33 G/DL (32-36); MEAN CORPUSCULAR VOLUME 88 FL (80-99); MEAN PLATELET VOLUME 11.1 FL (7.4-10.4); MONOCYTES # (AUTO) 0.8 X 10^3 (0.0-1.0); MONOCYTES % (AUTO) 9 % (0-12); NEUTROPHILS # (AUTO) 7.6 X 10^3 (1.8-7.8); NEUTROPHILS % (AUTO) 80 % (42-75); PLATELET COUNT 116 10^3/uL (130-400); RED CELL DISTRIBUTION WIDTH 13.3 % (10.0-14.5); WHITE BLOOD COUNT 9.5 10^3/uL (4.3-11.0)
[2018-11-08 08:00] VITALS: BP 120/72
[2018-11-08] MEDS ORDERED: IBUPROFEN 600 MG (MOTRIN) TAB PO ONE (08:02)
[2018-11-08] MEDS: DOCUSATE SODIUM 100 MG (COLACE) CAP PO SCH ×2 (08:10→20:15)
[2018-11-08] MEDS: IBUPROFEN 600 MG (MOTRIN) TAB PO SCH ×3 (08:10→20:15)
--- NOTE | 2018-11-08 10:30 | NUR ---
report received from VASILE Lucio. care assumed of pt.
[2018-11-08] MEDS ORDERED: IBUPROFEN 600 MG (MOTRIN) TAB PO SCH (12:30)
[2018-11-08 14:30] VITALS: BP 129/71
--- NOTE | 2018-11-08 16:55 | Anesthesia-Regional Post-Op ---
Regional Patient Condition Mental Status: Alert, Oriented x3 Circulation: Same as Pre-Op Headache: Absent Sensation: Full Recovery Motor Block: Absent Post Op Complications Complications None Follow Up Care/Instructions Patient Instructions None needed. Anesthesia/Patient Condition Patient is doing well, no complaints, stable vital signs, no apparent adverse anesthesia problems. ДМИТРИЙ RIVAS DO Nov 08, 2018 16:55
[2018-11-08 20:15] VITALS: BP 112/61
--- NOTE | 2018-11-08 22:20 | NUR ---
Pt ambulating in halls, tolerating well, shows no ss distress, denies needs.
[2018-11-09 02:08] VITALS: BP 110/73
[2018-11-09] MEDS: IBUPROFEN 600 MG (MOTRIN) TAB PO SCH ×2 (02:08→09:03)
--- NOTE | 2018-11-09 08:15 | NUR ---
pt ambulating in hallways with s/o and infant @ side. pt stable, no sx's of distress noted.
[2018-11-09] MEDS ORDERED: Oxycodone Hcl PO (08:45)
[2018-11-09] MEDS ORDERED: IBUP-844 PO (08:45)
[2018-11-09] MEDS ORDERED: DOCU100C37 PO (08:45)
[2018-11-09] MEDS ORDERED: FERR-84 PO (08:47)
--- NOTE | 2018-11-09 08:49 | Discharge Inst-Women's Service ---
Discharge Inst-Women's Serv Depart Medication/Instructions New, Converted or Re-Newed RX: RX on Chart Final Diagnosis Breech Primary section Consults/Follow Up Additional Follow Up: Yes (1 week for incision check with Francia rich 6 weeks with Eduardo) Activity Activity: Activity as Tolerated Driving Instructions: No Driving for 1 Week NO SMOKING: NO SMOKING Nothing Inside Vagina: No Douching, No [place], No Tampons Diet Discharge Diet: No Restrictions Symptoms to Report to : Swelling Increased, Bleeding Excessive, Pain Increased, Fever Over 101 Degrees F, Vaginal Bleeding Increase, Cramps in Feet or Legs, Vaginal Discharge Foul For Any Problems or Questions: Contact Your Physician Skin/Wound Care Infection Signs and Symptoms: Increased Redness, Foul Odor of Wound, Increased Drainage, Skin Itchy or Has a Rash, Increased Swelling, Temperature Above 101 F Operative Area Clean and Dry: Keep Incision Clean/Dry Stitches/[place]/Dermabond: Dermabond Bathing Instructions: JES Holloway DO Nov 09, 2018 08:49
--- NOTE | 2018-11-09 08:56 | NUR ---
here. dismissal orders received.
[2018-11-09 09:00] VITALS: BP 117/74
--- NOTE | 2018-11-09 09:00 | NUR ---
initial shift assessment completed, see interventions for further. abd incision MERYL with Dermabond intact.
[2018-11-09] MEDS: DOCUSATE SODIUM 100 MG (COLACE) CAP PO SCH (09:03)
--- NOTE | 2018-11-09 10:58 | NUR ---
dismissal instructions given, pt verbalizes understanding. reviewed dismissal medications & administration schedule. appointment reminders given. signature page signed, placed on chart.
--- NOTE | 2018-11-09 12:15 | NUR ---
pt ambulated to private vehicle with VASILE Salas, and s/o @ side. secured in rear facing car seat. pt stable with no sx's of distress noted.
== END 2018-11-09 12:15 | disposition home or self-care (01) | DRG 787 ==
LOC: LDRP 07:10
PROVIDERS: ADMIT Obstetrics & Gynecology; ATTEND Obstetrics & Gynecology
PROC: 10S0XZZ Reposition Products of Conception, External Approach (ICD-10-PCS; 2018-11-07)
PROC: 10D00Z1 Extraction of Products of Conception, Low, Open Approach (ICD-10-PCS; principal; 2018-11-07 11:40)
DX: O32.1XX0 Maternal care for breech presentation, not applicable or unspecified (principal); O99.12 Other diseases of the blood and blood-forming organs and certain disorders involving the immune mechanism complicating childbirth; D69.6 Thrombocytopenia, unspecified; Z37.0 Single live birth; Z3A.39 39 weeks gestation of pregnancy
CPT/HCPCS: 36415; 85025; 86850; 86900; 86901; 94664